=== PATIENT | male | born 1980 | race Two or more races ===

== ENCOUNTER 2020-10-31 14:49 | Inpatient (IN) | payer OTHER ==
[2020-10-31] MEDS ORDERED: ONDANSETRON *ODT* 4 MG TABLET SL PRN (18:13)
[2020-10-31] MEDS ORDERED: IBUPROFEN 400 MG TABLET (FP) PO PRN (18:13)
[2020-10-31] MEDS ORDERED: cloNIDine HCL 0.1 MG TABLET PO PRN (18:13)
[2020-10-31] MEDS ORDERED: BISMUTH SUBSALICYLATE 524 MG/30 ML UD PO PRN (18:13)
[2020-10-31] MEDS ORDERED: MENTHOL/PHENOL 1 EACH UD MM PRN (18:13)
[2020-10-31] MEDS ORDERED: MAG HYDROX/AL HYDROX/SIMETH 30 ML UNIT-DOSE CUP PO PRN (18:13)
[2020-10-31] MEDS ORDERED: ACETAMINOPHEN 325 MG TABLET (FP) PO PRN ×2 (18:13)
[2020-10-31] MEDS ORDERED: MAGNESIUM CITRATE 300 ML BOTTLE PO PRN (18:13)
[2020-10-31] MEDS ORDERED: MAGNESIUM HYDROX 2400MG/30ML ORAL SUSPENSION 30 ML CUP PO PRN (18:13)
[2020-10-31] MEDS ORDERED: METHOCARBAMOL 500 MG TABLET PO PRN (18:13)
[2020-10-31 18:33] VITALS: BMI 28.4
[2020-10-31] MEDS ORDERED: METHADONE HCL 10 MG TABLET (FOR DETOX USE ONLY) PO ONE (19:00)
[2020-10-31] MEDS: NICOTINE 14 MG/24 HOURS TOPICAL PATCH TD SCH (19:29)
[2020-10-31] MEDS: hydrOXYzine PAMOATE 25 MG CAPSULE (FP) PO SCH (22:21)
[2020-10-31] MEDS: MELATONIN 5 MG TABLETS PO SCH (22:21)
[2020-10-31] MEDS: THIAMINE HCL 100 MG TABLET (FP) PO SCH (22:21)
[2020-11-01] MEDS: hydrOXYzine PAMOATE 25 MG CAPSULE (FP) PO SCH ×5 (05:17→22:27)
[2020-11-01] MEDS ORDERED: METHADONE HCL 5 MG TABLET (FOR DETOX USE ONLY) ONE (09:38)
[2020-11-01] MEDS ORDERED: METHADONE HCL 10 MG TABLET (FOR DETOX USE ONLY) ONE (09:38)
[2020-11-01] MEDS ORDERED: METHADONE (DETOX) 20 MG, METHADONE (DETOX) 5 MG PO ONE (10:00)
[2020-11-01] MEDS: PRENATAL VITAMINS W/ FOLIC ACID TABLET (FP) PO SCH (10:12)
[2020-11-01] MEDS: NICOTINE 14 MG/24 HOURS TOPICAL PATCH TD SCH (10:12)
[2020-11-01] MEDS: DIVALPROEX SODIUM 500 MG TABLET E.C. PO SCH ×2 (10:38→22:27)
[2020-11-01 12:08] LABS: HEMATOCRIT 47.6 % (35.4-49); HEMOGLOBIN 15.9 GM/dL (11.7-16.9); MCH 30.8 pg (25.7-33.7); MCHC 33.4 g/dl (32.0-35.9); MEAN CELL VOLUME 92.2 fl (80-96); MEAN PLT VOLUME 8.1 fl (7.5-11.1); PLATELET COUNT 322 K/MM3 (134-434); RBC 5.16 M/mm3 (4.00-5.60); RDW 15.2 % (11.9-15.9); WHITE BLOOD COUNT 6.2 K/mm3 (4.0-10.0)
[2020-11-01 12:17] LABS: POTASSIUM 4.3 mmol/L (3.5-5.1)
[2020-11-01 12:23] LABS: CALCIUM 9.1 mg/dL (8.5-10.1)
[2020-11-01 12:24] LABS: ALBUMIN 1.7 g/dl (3.4-5.0); BLOOD UREA NITROGEN 12.6 mg/dL (7-18)
[2020-11-01 12:28] LABS: BILIRUBIN,TOTAL 0.8 mg/dL (0.2-1)
[2020-11-01 12:29] LABS: TOT PROT 6.8 g/dl (6.4-8.2)
[2020-11-01 13:25] LABS: HIV INTERPRETATION NEGATIVE (NEGATIVE)
[2020-11-01] MEDS: traZODone HCL 50 MG TABLET (FP) PO SCH (22:27)
[2020-11-01] MEDS: PRAZOSIN HCL 1 MG CAPSULE PO SCH (22:27)
[2020-11-01] MEDS: MELATONIN 5 MG TABLETS PO SCH (22:27)
[2020-11-01] MEDS: MIRTAZAPINE 15 MG TABLET (FP) PO SCH (22:27)
[2020-11-01] MEDS: THIAMINE HCL 100 MG TABLET (FP) PO SCH (22:27)
[2020-11-01] MEDS: risperiDONE 0.25 MG TABLET PO SCH (22:54)
[2020-11-02] MEDS: hydrOXYzine PAMOATE 25 MG CAPSULE (FP) PO SCH ×5 (06:06→22:15)
[2020-11-02] MEDS ORDERED: METHADONE HCL 10 MG TABLET (FOR DETOX USE ONLY) PO ONE (10:00)
[2020-11-02] MEDS: PRENATAL VITAMINS W/ FOLIC ACID TABLET (FP) PO SCH (10:31)
[2020-11-02] MEDS: DIVALPROEX SODIUM 500 MG TABLET E.C. PO SCH ×2 (10:31→22:15)
[2020-11-02] MEDS: NICOTINE 14 MG/24 HOURS TOPICAL PATCH TD SCH (10:32)
[2020-11-02] MEDS ORDERED: COLLOIDAL OATMEAL 1 BAR EACH TP PRN (19:46)
[2020-11-02] MEDS: traZODone HCL 50 MG TABLET (FP) PO SCH (22:15)
[2020-11-02] MEDS: MIRTAZAPINE 15 MG TABLET (FP) PO SCH (22:15)
[2020-11-02] MEDS: THIAMINE HCL 100 MG TABLET (FP) PO SCH (22:15)
[2020-11-02] MEDS: PRAZOSIN HCL 1 MG CAPSULE PO SCH (22:15)
[2020-11-02] MEDS: MELATONIN 5 MG TABLETS PO SCH (22:15)
[2020-11-02] MEDS: diazePAM 5 MG TABLET PO PRN (22:18)
[2020-11-03] MEDS: risperiDONE 0.25 MG TABLET PO SCH ×2 (01:14→22:46)
[2020-11-03] MEDS: hydrOXYzine PAMOATE 25 MG CAPSULE (FP) PO SCH ×5 (05:17→22:45)
[2020-11-03] MEDS ORDERED: METHADONE HCL 10 MG TABLET (FOR DETOX USE ONLY) ONE (09:18)
[2020-11-03] MEDS ORDERED: METHADONE HCL 5 MG TABLET (FOR DETOX USE ONLY) ONE (09:18)
[2020-11-03] MEDS ORDERED: METHADONE (DETOX) 10 MG, METHADONE (DETOX) 5 MG PO ONE (10:00)
[2020-11-03] MEDS: DIVALPROEX SODIUM 500 MG TABLET E.C. PO SCH ×2 (10:24→22:46)
[2020-11-03] MEDS: PRENATAL VITAMINS W/ FOLIC ACID TABLET (FP) PO SCH (10:24)
[2020-11-03] MEDS: NICOTINE 14 MG/24 HOURS TOPICAL PATCH TD SCH (10:24)
[2020-11-03] MEDS: NICOTINE POLACRILEX 2 MG GUM BUC PRN (10:27)
[2020-11-03] MEDS: traZODone HCL 50 MG TABLET (FP) PO SCH (22:45)
[2020-11-03] MEDS: MELATONIN 5 MG TABLETS PO SCH (22:45)
[2020-11-03] MEDS: MIRTAZAPINE 15 MG TABLET (FP) PO SCH (22:46)
[2020-11-03] MEDS: PRAZOSIN HCL 1 MG CAPSULE PO SCH (22:46)
[2020-11-03] MEDS: THIAMINE HCL 100 MG TABLET (FP) PO SCH (22:46)
[2020-11-04] MEDS: diazePAM 5 MG TABLET PO PRN (03:57)
[2020-11-04] MEDS: hydrOXYzine PAMOATE 25 MG CAPSULE (FP) PO SCH ×5 (05:20→22:19)
[2020-11-04] MEDS ORDERED: METHADONE HCL 10 MG TABLET (FOR DETOX USE ONLY) PO ONE (10:00)
[2020-11-04] MEDS: PRENATAL VITAMINS W/ FOLIC ACID TABLET (FP) PO SCH (10:06)
[2020-11-04] MEDS: DIVALPROEX SODIUM 500 MG TABLET E.C. PO SCH ×2 (10:06→22:17)
[2020-11-04] MEDS: NICOTINE 14 MG/24 HOURS TOPICAL PATCH TD SCH (10:09)
[2020-11-04] MEDS: NICOTINE POLACRILEX 2 MG GUM BUC PRN (10:11)
[2020-11-04] MEDS: risperiDONE 0.25 MG TABLET PO SCH (22:17)
[2020-11-04] MEDS: MIRTAZAPINE 15 MG TABLET (FP) PO SCH (22:17)
[2020-11-04] MEDS: traZODone HCL 50 MG TABLET (FP) PO SCH (22:18)
[2020-11-04] MEDS: THIAMINE HCL 100 MG TABLET (FP) PO SCH (22:18)
[2020-11-04] MEDS: MELATONIN 5 MG TABLETS PO SCH (22:19)
[2020-11-04] MEDS: PRAZOSIN HCL 1 MG CAPSULE PO SCH (22:19)
[2020-11-05] MEDS: hydrOXYzine PAMOATE 25 MG CAPSULE (FP) PO SCH ×2 (06:00→10:09)
[2020-11-05] MEDS ORDERED: METHADONE HCL 5 MG TABLET (FOR DETOX USE ONLY) PO ONE (06:00)
[2020-11-05 07:53] VITALS: TEMP 97.5
[2020-11-05 09:36] VITALS: BP 130/74; PULSE 110
[2020-11-05] MEDS: NICOTINE 14 MG/24 HOURS TOPICAL PATCH TD SCH (10:08)
[2020-11-05] MEDS: PRENATAL VITAMINS W/ FOLIC ACID TABLET (FP) PO SCH (10:09)
[2020-11-05] MEDS: DIVALPROEX SODIUM 500 MG TABLET E.C. PO SCH (10:09)
[2020-11-05] MEDS: NICOTINE POLACRILEX 2 MG GUM BUC PRN (10:10)
== END 2020-11-05 12:55 | disposition other institution (70) | DRG 773 ==
LOC: YASAS 14:49 → Y6N 18:13
PROVIDERS: ADMIT Allergy & Immunology; ATTEND Allergy & Immunology
PROC: HZ2ZZZZ Detoxification Services for Substance Abuse Treatment (ICD-10-PCS; principal; 2020-10-31)
DX: F11.23 Opioid dependence with withdrawal (principal); F14.20 Cocaine dependence, uncomplicated; F12.20 Cannabis dependence, uncomplicated; F17.210 Nicotine dependence, cigarettes, uncomplicated; F20.9 Schizophrenia, unspecified; F31.9 Bipolar disorder, unspecified; F19.280 Other psychoactive substance dependence with psychoactive substance-induced anxiety disorder; F19.282 Other psychoactive substance dependence with psychoactive substance-induced sleep disorder; F43.10 Post-traumatic stress disorder, unspecified; R74.01 Elevation of levels of liver transaminase levels; R74.8 Abnormal levels of other serum enzymes; Z62.810 Personal history of physical and sexual abuse in childhood; Z56.0 Unemployment, unspecified; Z59.0 Homelessness
CPT/HCPCS: 36415; 80053; 85027; 86780; 87389; 93005; 93010; C9803; U0003

== ENCOUNTER 2020-11-05 13:01 | Inpatient (IN) | payer OTHER ==
[2020-11-05] MEDS: traZODone HCL 50 MG TABLET (FP) PO SCH (21:25)
[2020-11-05] MEDS: DIVALPROEX SODIUM 500 MG TABLET E.C. PO SCH (21:25)
[2020-11-05] MEDS: PRAZOSIN HCL 1 MG CAPSULE PO SCH (21:26)
[2020-11-05] MEDS: risperiDONE 0.25 MG TABLET PO SCH (21:26)
[2020-11-05] MEDS: MIRTAZAPINE 15 MG TABLET (FP) PO SCH (21:27)
[2020-11-06] MEDS: DIVALPROEX SODIUM 500 MG TABLET E.C. PO SCH ×2 (10:01→21:33)
[2020-11-06] MEDS ORDERED: P-EPHED 60MG/TRIPROLIDI 2.5MG TABLET PO PRN (10:02)
[2020-11-06] MEDS ORDERED: ACETAMINOPHEN 325 MG TABLET (FP) PO PRN (10:02)
[2020-11-06] MEDS ORDERED: MENTHOL/PHENOL 1 EACH UD MM PRN (10:02)
[2020-11-06] MEDS ORDERED: MAGNESIUM HYDROX 2400MG/30ML ORAL SUSPENSION 30 ML CUP PO PRN (10:02)
[2020-11-06] MEDS ORDERED: LOPERAMIDE HCL 2 MG CAPSULE PO PRN (10:02)
[2020-11-06] MEDS ORDERED: MAG HYDROX/AL HYDROX/SIMETH 30 ML UNIT-DOSE CUP PO PRN (10:02)
[2020-11-06] MEDS ORDERED: guaiFENesin 200 MG/10 ML 10 ML UNIT-DOSE CUPS PO PRN (10:02)
[2020-11-06] MEDS ORDERED: MAGNESIUM CITRATE 300 ML BOTTLE PO PRN (10:02)
[2020-11-06] MEDS: hydrOXYzine PAMOATE 25 MG CAPSULE (FP) PO PRN (10:27)
[2020-11-06] MEDS: NICOTINE POLACRILEX 4 MG GUM BUC PRN (10:27)
[2020-11-06] MEDS: NICOTINE 21 MG/24 HOURS TOPICAL PATCH TD SCH (10:28)
[2020-11-06] MEDS ORDERED: hydrOXYzine PAMOATE 25 MG CAPSULE (FP) PO SCH (14:00)
[2020-11-06] MEDS ORDERED: PT OWN MED DRAWER 7, Y5N ONE (19:58)
[2020-11-06] MEDS: THIAMINE HCL 100 MG TABLET (FP) PO SCH (21:33)
[2020-11-06] MEDS: MELATONIN 5 MG TABLETS PO SCH (21:33)
[2020-11-06] MEDS: traZODone HCL 50 MG TABLET (FP) PO SCH (21:33)
[2020-11-06] MEDS: PRAZOSIN HCL 1 MG CAPSULE PO SCH (21:34)
[2020-11-06] MEDS: MIRTAZAPINE 15 MG TABLET (FP) PO SCH (21:35)
[2020-11-06] MEDS: risperiDONE 0.25 MG TABLET PO SCH (21:35)
[2020-11-07] MEDS: PRENATAL VITAMINS W/ FOLIC ACID TABLET (FP) PO SCH (10:06)
[2020-11-07] MEDS: NICOTINE 21 MG/24 HOURS TOPICAL PATCH TD SCH (10:06)
[2020-11-07] MEDS: DIVALPROEX SODIUM 500 MG TABLET E.C. PO SCH ×2 (10:07→21:29)
[2020-11-07] MEDS: hydrOXYzine PAMOATE 25 MG CAPSULE (FP) PO PRN (10:09)
[2020-11-07] MEDS: NICOTINE POLACRILEX 4 MG GUM BUC PRN (10:10)
[2020-11-07] MEDS: traZODone HCL 50 MG TABLET (FP) PO SCH (21:29)
[2020-11-07] MEDS: PRAZOSIN HCL 1 MG CAPSULE PO SCH (21:29)
[2020-11-07] MEDS: risperiDONE 0.25 MG TABLET PO SCH (21:29)
[2020-11-07] MEDS: THIAMINE HCL 100 MG TABLET (FP) PO SCH (21:29)
[2020-11-07] MEDS: MELATONIN 5 MG TABLETS PO SCH (21:30)
[2020-11-07] MEDS: MIRTAZAPINE 15 MG TABLET (FP) PO SCH (21:31)
[2020-11-08] MEDS: NICOTINE 21 MG/24 HOURS TOPICAL PATCH TD SCH (10:17)
[2020-11-08] MEDS: PRENATAL VITAMINS W/ FOLIC ACID TABLET (FP) PO SCH (10:17)
[2020-11-08] MEDS: NICOTINE POLACRILEX 4 MG GUM BUC PRN (10:18)
[2020-11-08] MEDS: DIVALPROEX SODIUM 500 MG TABLET E.C. PO SCH ×2 (10:18→21:18)
[2020-11-08] MEDS: hydrOXYzine PAMOATE 25 MG CAPSULE (FP) PO PRN ×3 (10:18→21:19)
[2020-11-08] MEDS: MELATONIN 5 MG TABLETS PO SCH (21:17)
[2020-11-08] MEDS: MIRTAZAPINE 15 MG TABLET (FP) PO SCH (21:18)
[2020-11-08] MEDS: THIAMINE HCL 100 MG TABLET (FP) PO SCH (21:18)
[2020-11-08] MEDS: traZODone HCL 50 MG TABLET (FP) PO SCH (21:18)
[2020-11-08] MEDS: risperiDONE 0.25 MG TABLET PO SCH (21:18)
[2020-11-08] MEDS: PRAZOSIN HCL 1 MG CAPSULE PO SCH (21:18)
[2020-11-09] MEDS: DIVALPROEX SODIUM 500 MG TABLET E.C. PO SCH ×2 (09:54→21:20)
[2020-11-09] MEDS: PRENATAL VITAMINS W/ FOLIC ACID TABLET (FP) PO SCH (09:54)
[2020-11-09] MEDS: NICOTINE 21 MG/24 HOURS TOPICAL PATCH TD SCH (09:55)
[2020-11-09] MEDS: hydrOXYzine PAMOATE 25 MG CAPSULE (FP) PO PRN ×2 (09:56→16:20)
[2020-11-09] MEDS: NICOTINE POLACRILEX 4 MG GUM BUC PRN (09:56)
[2020-11-09] MEDS ORDERED: PT OWN MED DRAWER 7, Y5N ONE (20:25)
[2020-11-09] MEDS: traZODone HCL 50 MG TABLET (FP) PO SCH (21:20)
[2020-11-09] MEDS: risperiDONE 0.25 MG TABLET PO SCH (21:20)
[2020-11-09] MEDS: THIAMINE HCL 100 MG TABLET (FP) PO SCH (21:20)
[2020-11-09] MEDS: MIRTAZAPINE 15 MG TABLET (FP) PO SCH (21:20)
[2020-11-09] MEDS: MELATONIN 5 MG TABLETS PO SCH (21:21)
[2020-11-09] MEDS: PRAZOSIN HCL 1 MG CAPSULE PO SCH (21:21)
[2020-11-10] MEDS: NICOTINE 21 MG/24 HOURS TOPICAL PATCH TD SCH (09:47)
[2020-11-10] MEDS: DIVALPROEX SODIUM 500 MG TABLET E.C. PO SCH ×2 (09:47→21:56)
[2020-11-10] MEDS: PRENATAL VITAMINS W/ FOLIC ACID TABLET (FP) PO SCH (09:47)
[2020-11-10] MEDS: NICOTINE POLACRILEX 4 MG GUM BUC PRN (09:48)
[2020-11-10] MEDS: hydrOXYzine PAMOATE 25 MG CAPSULE (FP) PO PRN (14:07)
[2020-11-10] MEDS ORDERED: PT OWN MED DRAWER 7, Y5N ONE (20:46)
[2020-11-10] MEDS: PRAZOSIN HCL 1 MG CAPSULE PO SCH (21:55)
[2020-11-10] MEDS: MIRTAZAPINE 15 MG TABLET (FP) PO SCH (21:55)
[2020-11-10] MEDS: risperiDONE 0.25 MG TABLET PO SCH (21:55)
[2020-11-10] MEDS: MELATONIN 5 MG TABLETS PO SCH (21:56)
[2020-11-10] MEDS: traZODone HCL 50 MG TABLET (FP) PO SCH (21:56)
[2020-11-10] MEDS: THIAMINE HCL 100 MG TABLET (FP) PO SCH (21:56)
[2020-11-11] MEDS: PRENATAL VITAMINS W/ FOLIC ACID TABLET (FP) PO SCH (09:43)
[2020-11-11] MEDS: NICOTINE POLACRILEX 4 MG GUM BUC PRN (09:44)
[2020-11-11] MEDS: DIVALPROEX SODIUM 500 MG TABLET E.C. PO SCH ×2 (09:44→21:29)
[2020-11-11] MEDS: hydrOXYzine PAMOATE 25 MG CAPSULE (FP) PO PRN (09:44)
[2020-11-11] MEDS: NICOTINE 21 MG/24 HOURS TOPICAL PATCH TD SCH (09:44)
[2020-11-11] MEDS: THIAMINE HCL 100 MG TABLET (FP) PO SCH (21:29)
[2020-11-11] MEDS: MELATONIN 5 MG TABLETS PO SCH (21:29)
[2020-11-11] MEDS: traZODone HCL 50 MG TABLET (FP) PO SCH (21:29)
[2020-11-11] MEDS: MIRTAZAPINE 15 MG TABLET (FP) PO SCH (21:29)
[2020-11-11] MEDS: PRAZOSIN HCL 1 MG CAPSULE PO SCH (21:29)
[2020-11-11] MEDS: risperiDONE 0.25 MG TABLET PO SCH (23:05)
[2020-11-12] MEDS: PRENATAL VITAMINS W/ FOLIC ACID TABLET (FP) PO SCH (09:36)
[2020-11-12] MEDS: NICOTINE 21 MG/24 HOURS TOPICAL PATCH TD SCH (09:37)
[2020-11-12] MEDS: DIVALPROEX SODIUM 500 MG TABLET E.C. PO SCH ×2 (09:37→21:27)
[2020-11-12] MEDS: hydrOXYzine PAMOATE 25 MG CAPSULE (FP) PO PRN ×2 (09:37→18:03)
[2020-11-12] MEDS ORDERED: PT OWN MED DRAWER 7, Y5N ONE (20:23)
[2020-11-12] MEDS: MELATONIN 5 MG TABLETS PO SCH (21:26)
[2020-11-12] MEDS: traZODone HCL 50 MG TABLET (FP) PO SCH (21:27)
[2020-11-12] MEDS: THIAMINE HCL 100 MG TABLET (FP) PO SCH (21:27)
[2020-11-12] MEDS: PRAZOSIN HCL 1 MG CAPSULE PO SCH (21:27)
[2020-11-12] MEDS: MIRTAZAPINE 15 MG TABLET (FP) PO SCH (21:28)
[2020-11-12] MEDS: risperiDONE 0.25 MG TABLET PO SCH (21:28)
[2020-11-13] MEDS: PRENATAL VITAMINS W/ FOLIC ACID TABLET (FP) PO SCH (09:26)
[2020-11-13] MEDS: NICOTINE 21 MG/24 HOURS TOPICAL PATCH TD SCH (09:26)
[2020-11-13] MEDS: hydrOXYzine PAMOATE 25 MG CAPSULE (FP) PO PRN (09:27)
[2020-11-13] MEDS: DIVALPROEX SODIUM 500 MG TABLET E.C. PO SCH ×2 (09:27→21:35)
[2020-11-13] MEDS ORDERED: risperiDONE 0.25 MG TABLET PO ONE (09:37)
[2020-11-13] MEDS: risperiDONE 0.5 MG TABLET PO SCH ×2 (10:03→21:38)
[2020-11-13] MEDS: hydrOXYzine PAMOATE 50 MG CAPSULE (FP) PO PRN ×2 (12:21→21:35)
[2020-11-13] MEDS: traZODone HCL 100 MG TABLET (FP) PO SCH (21:37)
[2020-11-13] MEDS: MIRTAZAPINE 15 MG TABLET (FP) PO SCH (21:38)
[2020-11-13] MEDS: THIAMINE HCL 100 MG TABLET (FP) PO SCH (21:38)
[2020-11-13] MEDS: PRAZOSIN HCL 1 MG CAPSULE PO SCH (21:38)
[2020-11-13] MEDS ORDERED: SUVOREXANT 10 MG TABLET PO PRN (22:00)
[2020-11-14] MEDS: NICOTINE 21 MG/24 HOURS TOPICAL PATCH TD SCH (09:56)
[2020-11-14] MEDS: PRENATAL VITAMINS W/ FOLIC ACID TABLET (FP) PO SCH (09:56)
[2020-11-14] MEDS: DIVALPROEX SODIUM 500 MG TABLET E.C. PO SCH ×2 (09:56→21:23)
[2020-11-14] MEDS: risperiDONE 0.5 MG TABLET PO SCH ×2 (09:58→21:27)
[2020-11-14] MEDS: NICOTINE POLACRILEX 4 MG GUM BUC PRN (10:01)
[2020-11-14] MEDS: hydrOXYzine PAMOATE 50 MG CAPSULE (FP) PO PRN (21:23)
[2020-11-14] MEDS: traZODone HCL 100 MG TABLET (FP) PO SCH (21:23)
[2020-11-14] MEDS: PRAZOSIN HCL 1 MG CAPSULE PO SCH (21:23)
[2020-11-14] MEDS: THIAMINE HCL 100 MG TABLET (FP) PO SCH (21:23)
[2020-11-14] MEDS: MIRTAZAPINE 15 MG TABLET (FP) PO SCH (21:24)
[2020-11-14] MEDS ORDERED: PT OWN MED DRAWER 7, Y5N ONE (21:26)
[2020-11-15] MEDS ORDERED: PT OWN MED DRAWER 7, Y5N ONE (08:53)
[2020-11-15] MEDS: PRENATAL VITAMINS W/ FOLIC ACID TABLET (FP) PO SCH (09:45)
[2020-11-15] MEDS: risperiDONE 0.5 MG TABLET PO SCH ×2 (09:46→21:25)
[2020-11-15] MEDS: NICOTINE 21 MG/24 HOURS TOPICAL PATCH TD SCH (09:46)
[2020-11-15] MEDS: DIVALPROEX SODIUM 500 MG TABLET E.C. PO SCH ×2 (09:46→21:25)
[2020-11-15] MEDS: hydrOXYzine PAMOATE 50 MG CAPSULE (FP) PO PRN (17:36)
[2020-11-15] MEDS: THIAMINE HCL 100 MG TABLET (FP) PO SCH (21:25)
[2020-11-15] MEDS: MIRTAZAPINE 15 MG TABLET (FP) PO SCH (21:25)
[2020-11-15] MEDS: traZODone HCL 100 MG TABLET (FP) PO SCH (21:25)
[2020-11-15] MEDS: PRAZOSIN HCL 1 MG CAPSULE PO SCH (21:26)
[2020-11-16] MEDS: risperiDONE 0.5 MG TABLET PO SCH ×2 (10:13→21:18)
[2020-11-16] MEDS: NICOTINE 21 MG/24 HOURS TOPICAL PATCH TD SCH (10:13)
[2020-11-16] MEDS: hydrOXYzine PAMOATE 50 MG CAPSULE (FP) PO PRN (10:13)
[2020-11-16] MEDS: PRENATAL VITAMINS W/ FOLIC ACID TABLET (FP) PO SCH (10:13)
[2020-11-16] MEDS: DIVALPROEX SODIUM 500 MG TABLET E.C. PO SCH ×2 (10:13→21:18)
[2020-11-16] MEDS: THIAMINE HCL 100 MG TABLET (FP) PO SCH (21:18)
[2020-11-16] MEDS: traZODone HCL 100 MG TABLET (FP) PO SCH (21:18)
[2020-11-16] MEDS: MIRTAZAPINE 15 MG TABLET (FP) PO SCH (21:19)
[2020-11-16] MEDS: PRAZOSIN HCL 1 MG CAPSULE PO SCH (21:19)
[2020-11-16] MEDS ORDERED: SUVOREXANT 10 MG TABLET PO PRN (22:00)
[2020-11-17] MEDS: PRENATAL VITAMINS W/ FOLIC ACID TABLET (FP) PO SCH (10:12)
[2020-11-17] MEDS: DIVALPROEX SODIUM 500 MG TABLET E.C. PO SCH ×2 (10:12→21:11)
[2020-11-17] MEDS: NICOTINE 21 MG/24 HOURS TOPICAL PATCH TD SCH (10:13)
[2020-11-17] MEDS: risperiDONE 0.5 MG TABLET PO SCH ×2 (10:13→21:14)
[2020-11-17] MEDS: hydrOXYzine PAMOATE 50 MG CAPSULE (FP) PO PRN ×2 (10:13→13:39)
[2020-11-17] MEDS ORDERED: COLLOIDAL OATMEAL 1 BAR EACH TP PRN (11:05)
[2020-11-17] MEDS ORDERED: PT OWN MED DRAWER 7, Y5N ONE ×2 (19:26→21:14)
[2020-11-17] MEDS: PRAZOSIN HCL 1 MG CAPSULE PO SCH (21:11)
[2020-11-17] MEDS: THIAMINE HCL 100 MG TABLET (FP) PO SCH (21:11)
[2020-11-17] MEDS: traZODone HCL 100 MG TABLET (FP) PO SCH (21:11)
[2020-11-17] MEDS: SUVOREXANT 10 MG TABLET PO PRN (21:13)
[2020-11-17] MEDS: MIRTAZAPINE 15 MG TABLET (FP) PO SCH (21:14)
[2020-11-18] MEDS: risperiDONE 0.5 MG TABLET PO SCH ×2 (10:03→21:34)
[2020-11-18] MEDS: NICOTINE 21 MG/24 HOURS TOPICAL PATCH TD SCH (10:03)
[2020-11-18] MEDS: DIVALPROEX SODIUM 500 MG TABLET E.C. PO SCH ×2 (10:03→21:33)
[2020-11-18] MEDS: PRENATAL VITAMINS W/ FOLIC ACID TABLET (FP) PO SCH (10:03)
[2020-11-18] MEDS: hydrOXYzine PAMOATE 50 MG CAPSULE (FP) PO PRN (10:23)
[2020-11-18] MEDS: THIAMINE HCL 100 MG TABLET (FP) PO SCH (21:32)
[2020-11-18] MEDS: MIRTAZAPINE 15 MG TABLET (FP) PO SCH (21:33)
[2020-11-18] MEDS: traZODone HCL 100 MG TABLET (FP) PO SCH (21:33)
[2020-11-18] MEDS: PRAZOSIN HCL 1 MG CAPSULE PO SCH (21:34)
[2020-11-18] MEDS: SUVOREXANT 10 MG TABLET PO PRN (21:37)
[2020-11-19] MEDS: PRENATAL VITAMINS W/ FOLIC ACID TABLET (FP) PO SCH (09:44)
[2020-11-19] MEDS: NICOTINE 21 MG/24 HOURS TOPICAL PATCH TD SCH (09:44)
[2020-11-19] MEDS: DIVALPROEX SODIUM 500 MG TABLET E.C. PO SCH ×2 (09:45→21:38)
[2020-11-19] MEDS: risperiDONE 0.5 MG TABLET PO SCH ×2 (09:45→21:40)
[2020-11-19] MEDS: hydrOXYzine PAMOATE 50 MG CAPSULE (FP) PO PRN ×2 (09:45→14:00)
[2020-11-19] MEDS: THIAMINE HCL 100 MG TABLET (FP) PO SCH (21:38)
[2020-11-19] MEDS: traZODone HCL 100 MG TABLET (FP) PO SCH (21:38)
[2020-11-19] MEDS: PRAZOSIN HCL 1 MG CAPSULE PO SCH (21:38)
[2020-11-19] MEDS: MIRTAZAPINE 15 MG TABLET (FP) PO SCH (21:40)
[2020-11-19] MEDS: SUVOREXANT 10 MG TABLET PO PRN (21:42)
[2020-11-20] MEDS: risperiDONE 0.5 MG TABLET PO SCH ×2 (09:44→21:02)
[2020-11-20] MEDS: hydrOXYzine PAMOATE 50 MG CAPSULE (FP) PO PRN ×2 (09:44→14:36)
[2020-11-20] MEDS: DIVALPROEX SODIUM 500 MG TABLET E.C. PO SCH ×2 (09:44→21:02)
[2020-11-20] MEDS: PRENATAL VITAMINS W/ FOLIC ACID TABLET (FP) PO SCH (09:44)
[2020-11-20] MEDS: NICOTINE 21 MG/24 HOURS TOPICAL PATCH TD SCH (09:44)
[2020-11-20] MEDS: MIRTAZAPINE 15 MG TABLET (FP) PO SCH (21:02)
[2020-11-20] MEDS: THIAMINE HCL 100 MG TABLET (FP) PO SCH (21:02)
[2020-11-20] MEDS: traZODone HCL 100 MG TABLET (FP) PO SCH (21:03)
[2020-11-20] MEDS: SUVOREXANT 10 MG TABLET PO PRN (21:04)
[2020-11-20] MEDS: PRAZOSIN HCL 1 MG CAPSULE PO SCH (21:04)
[2020-11-21] MEDS: hydrOXYzine PAMOATE 50 MG CAPSULE (FP) PO PRN ×2 (09:44→16:29)
[2020-11-21] MEDS: risperiDONE 0.5 MG TABLET PO SCH ×2 (09:44→21:35)
[2020-11-21] MEDS: PRENATAL VITAMINS W/ FOLIC ACID TABLET (FP) PO SCH (09:44)
[2020-11-21] MEDS: NICOTINE 21 MG/24 HOURS TOPICAL PATCH TD SCH (09:44)
[2020-11-21] MEDS: DIVALPROEX SODIUM 500 MG TABLET E.C. PO SCH ×2 (09:44→21:35)
[2020-11-21] MEDS: IBUPROFEN 400 MG TABLET (FP) PO PRN ×2 (11:30→17:33)
[2020-11-21] MEDS ORDERED: PT OWN MED DRAWER 7, Y5N ONE (19:17)
[2020-11-21] MEDS: PRAZOSIN HCL 1 MG CAPSULE PO SCH (21:34)
[2020-11-21] MEDS: MIRTAZAPINE 15 MG TABLET (FP) PO SCH (21:34)
[2020-11-21] MEDS: THIAMINE HCL 100 MG TABLET (FP) PO SCH (21:35)
[2020-11-21] MEDS: traZODone HCL 100 MG TABLET (FP) PO SCH (21:35)
[2020-11-21] MEDS: SUVOREXANT 10 MG TABLET PO PRN (21:38)
[2020-11-22] MEDS: IBUPROFEN 400 MG TABLET (FP) PO PRN ×3 (00:49→18:54)
[2020-11-22] MEDS: PRENATAL VITAMINS W/ FOLIC ACID TABLET (FP) PO SCH (09:45)
[2020-11-22] MEDS: risperiDONE 0.5 MG TABLET PO SCH ×2 (09:46→21:21)
[2020-11-22] MEDS ORDERED: PT OWN MED DRAWER 7, Y5N ONE ×2 (09:46→19:44)
[2020-11-22] MEDS: DIVALPROEX SODIUM 500 MG TABLET E.C. PO SCH ×2 (09:47→21:21)
[2020-11-22] MEDS: hydrOXYzine PAMOATE 50 MG CAPSULE (FP) PO PRN (09:47)
[2020-11-22] MEDS: THIAMINE HCL 100 MG TABLET (FP) PO SCH (21:21)
[2020-11-22] MEDS: MIRTAZAPINE 15 MG TABLET (FP) PO SCH (21:21)
[2020-11-22] MEDS: traZODone HCL 100 MG TABLET (FP) PO SCH (21:21)
[2020-11-22] MEDS: SUVOREXANT 10 MG TABLET PO PRN (21:25)
[2020-11-22] MEDS: PRAZOSIN HCL 1 MG CAPSULE PO SCH (21:34)
[2020-11-23] MEDS: DIVALPROEX SODIUM 500 MG TABLET E.C. PO SCH ×2 (09:35→21:23)
[2020-11-23] MEDS: PRENATAL VITAMINS W/ FOLIC ACID TABLET (FP) PO SCH (09:35)
[2020-11-23] MEDS: risperiDONE 0.5 MG TABLET PO SCH ×2 (09:36→21:23)
[2020-11-23] MEDS ORDERED: PT OWN MED DRAWER 7, Y5N ONE (09:36)
[2020-11-23] MEDS: hydrOXYzine PAMOATE 50 MG CAPSULE (FP) PO PRN (14:14)
[2020-11-23] MEDS: THIAMINE HCL 100 MG TABLET (FP) PO SCH (21:22)
[2020-11-23] MEDS: PRAZOSIN HCL 1 MG CAPSULE PO SCH (21:23)
[2020-11-23] MEDS: traZODone HCL 100 MG TABLET (FP) PO SCH (21:23)
[2020-11-23] MEDS: MIRTAZAPINE 15 MG TABLET (FP) PO SCH (21:24)
[2020-11-23] MEDS: SUVOREXANT 10 MG TABLET PO PRN (21:25)
[2020-11-24] MEDS: DIVALPROEX SODIUM 500 MG TABLET E.C. PO SCH ×2 (09:28→21:12)
[2020-11-24] MEDS: risperiDONE 0.5 MG TABLET PO SCH ×2 (09:28→21:12)
[2020-11-24] MEDS: PRENATAL VITAMINS W/ FOLIC ACID TABLET (FP) PO SCH (09:28)
[2020-11-24] MEDS: hydrOXYzine PAMOATE 50 MG CAPSULE (FP) PO PRN (09:30)
[2020-11-24] MEDS ORDERED: PT OWN MED DRAWER 7, Y5N ONE (19:48)
[2020-11-24] MEDS: traZODone HCL 100 MG TABLET (FP) PO SCH (21:12)
[2020-11-24] MEDS: THIAMINE HCL 100 MG TABLET (FP) PO SCH (21:12)
[2020-11-24] MEDS: PRAZOSIN HCL 1 MG CAPSULE PO SCH (21:13)
[2020-11-24] MEDS: MIRTAZAPINE 15 MG TABLET (FP) PO SCH (21:14)
[2020-11-24] MEDS ORDERED: SUVOREXANT 10 MG TABLET PO PRN (22:00)
[2020-11-25 07:08] VITALS: BP 141/76; PULSE 77; TEMP 97.6
[2020-11-25] MEDS: PRENATAL VITAMINS W/ FOLIC ACID TABLET (FP) PO SCH (09:42)
[2020-11-25] MEDS: risperiDONE 0.5 MG TABLET PO SCH (09:43)
[2020-11-25] MEDS: DIVALPROEX SODIUM 500 MG TABLET E.C. PO SCH (09:43)
== END 2020-11-25 11:10 | disposition home or self-care (01) | DRG 772 ==
LOC: YASAS 13:01 → Y5N 13:02
PROVIDERS: ADMIT Allergy & Immunology; ATTEND Allergy & Immunology
PROC: HZ42ZZZ Group Counseling for Substance Abuse Treatment, Cognitive-Behavioral (ICD-10-PCS; principal; 2020-11-05)
DX: F11.20 Opioid dependence, uncomplicated (principal); F14.20 Cocaine dependence, uncomplicated; F12.20 Cannabis dependence, uncomplicated; F17.210 Nicotine dependence, cigarettes, uncomplicated; F19.280 Other psychoactive substance dependence with psychoactive substance-induced anxiety disorder; F31.9 Bipolar disorder, unspecified; F43.10 Post-traumatic stress disorder, unspecified; Z62.810 Personal history of physical and sexual abuse in childhood; Z56.0 Unemployment, unspecified; Z59.0 Homelessness
CPT/HCPCS: 80164; C9803; U0003